=== PATIENT | female | born 1995 | race American Indian/Alaskan Native ===

== ENCOUNTER 2018-12-09 20:48 | Emergency (ER) | payer SELFPAY ==
[2018-12-09] MEDS ORDERED: MORPHINE IV ONE (21:24)
[2018-12-09] MEDS ORDERED: ZOFRAN IV ONE (21:24)
[2018-12-09] MEDS ORDERED: BOOSTRIX IM ONE (21:33)
[2018-12-09] MEDS ORDERED: PERCOCET 5/325 PO PRN (21:33)
--- NOTE | 2018-12-09 21:41 | Emergency Department Report ---
ED Upper Extremity Inj HPI - General Chief Complaint: Extremity Injury, Upper Stated Complaint: WRIST INJURY Time Seen by Provider: 12/09/18 21:00 Source: patient, EMS Mode of arrival: Stretcher Limitations: Physical Limitation - History of Present Illness Initial Comments: Mady is a 23-year-old left-hand dominant healthy female who injured her left w rist after falling onto outstretched hand. This occurred while riding a skateboard. No other injury. She is concerned about the constant bleeding. 10 out of 10 pain in spite 75 g of fentanyl. Unknown tetanus status. Last by mouth intake 5 PM 4 hours prior to arrival. She arrived via EMS. MD Complaint: Injury to:: left, wrist -: This evening Other Extremity Injury: Wrist: Left Other Injuries: none Handedness: left Place: outdoors Severity scale (0 -10): 10 Improves With: immobilization, medication Worsens With: movement of extremity Context: fall Associated Symptoms: denies other symptoms Treatments Prior to Arrival: other (sling) - Related Data Home Medications Medication Instructions Recorded Confirmed Last Taken Albuterol Sulfate [Albuterol 0.63% 0.63 mg IH TID PRN 12/09/18 12/09/18 Unknown NEBS] Previous Rx's Medication Instructions Recorded Last Taken Type HYDROcodone/APAP 5-325 [[place] 1 each PO Q6HR PRN #15 tablet 12/09/18 Unknown Rx 5/325] cephALEXin [Keflex] 500 mg PO Q8HR 7 Days #21 cap 12/09/18 Unknown Rx Allergies Allergy/AdvReac Type Severity Reaction Status Date / Time No Known Allergies Allergy Unverified 12/09/18 20:56 ED Review of Systems ROS: Stated complaint: WRIST INJURY Other details as noted in HPI Constitutional: denies: fever, malaise Musculoskeletal: joint swelling, arthralgia Skin: rash, lesions ED Past Medical Hx - Past Medical History Previous Medical History?: Yes Hx Asthma: Yes - Surgical History Past Surgical History?: Yes Additional Surgical History: left foot surgery - Social History Smoking Status: Never Smoker Substance Use Type: None - Medications Home Medications: Home Medications Medication Instructions Recorded Confirmed Last Taken Type Albuterol Sulfate [Albuterol 0.63% 0.63 mg IH TID PRN 12/09/18 12/09/18 Unknown History NEBS] HYDROcodone/APAP 5-325 [[place] 1 each PO Q6HR PRN #15 tablet 12/09/18 Unknown Rx 5/325] cephALEXin [Keflex] 500 mg PO Q8HR 7 Days #21 cap 12/09/18 Unknown Rx ED Physical Exam - General Limitations: Physical Limitation General appearance: alert, in no apparent distress, other (tearful in pain) - Head Head exam: Present: atraumatic, normocephalic - Eye Eye exam: Present: normal appearance - ENT ENT exam: Present: mucous membranes moist - Neck Neck exam: Present: normal inspection - Respiratory Respiratory exam: Absent: respiratory distress - Cardiovascular Cardiovascular Exam: Absent: systolic murmur, diastolic murmur, rubs, gallop - Extremities Exam Extremities exam: Present: other (left wrist deformity: L shaped deformity with deep puncture wound 8 mm in diameter MUR distally intact) - Back Exam Back exam: Present: normal inspection - Neurological Exam Neurological exam: Present: alert, oriented X3 - Psychiatric Psychiatric exam: Present: normal affect, normal mood - Skin Skin exam: Present: other (bleeding ulcer oozing at left wrist) ED Course Vital Signs 12/09/18 12/09/18 20:52 21:31 Temperature 98.7 F Pulse Rate 60 65 Respiratory 12 14 Rate Blood Pressure 121/85 O2 Sat by Pulse 97 99 Oximetry - Orthopedic Fracture Reduction Fracture #1 Consent Obtained: verbal consent Time Out Performed: Yes Side: left Fracture Reduction Location: radius, ulna Analgesia: hematoma block Technique: direct manipulation, traction/counter-traction Post Reduction X-rays Demonstrate: acceptable reduction Post-Reduction Neuro Exam: intact, no change Post-Reduction Vascular Exam: intact, no change Splint Applied: Yes Patient Tolerated Procedure: well Additional Comments: Suboptimal reduction due to lack of patient cooperation. Left sugar tong splint was applied to the affected extremity under my supervision. After application the extremity was neurovascularly intact with acceptable alignment. ED Medical Decision Making - Radiology Data Radiology results: report reviewed, image reviewed Both bone distal forearm fracture with volar angulation and dorsal displacement - Medical Decision Making Open both bone forearm fracture, Dr. Saravia recommended IV antibiotics and reduction. He explained that this injury is typically treated as a closed fracture with low risk of infection. With hematoma block, fracture reduction suboptimal due to lack of patient's cooperation. She will be referred to orthopedic surgeon for definitive care. Sugar tong splint in place. Sling provided. The open abrasions and ulcer were covered with Vaseline gauze Discharge prescription for norco and keflex Critical care attestation.: If time is entered above; I have spent that time in minutes in the direct care of this critically ill patient, excluding procedure time. ED Disposition Clinical Impression: Open forearm fracture, Radius and ulna distal fracture Disposition: TO HOME OR SELFCARE Is pt being admited?: No Does the pt Need Aspirin: No Condition: Stable Instructions: Wrist Fracture in Adults (ED), Arm Fracture in Adults (ED), Splint Care (ED) Additional Instructions: Please call orthopedic surgeon this week for definitive care. Prescriptions: cephALEXin [Keflex] 500 mg PO Q8HR 7 Days #21 cap HYDROcodone/APAP 5-325 [[place] 5/325] 1 each PO Q6HR PRN #15 tablet PRN Reason: Pain Referrals: ASTON SARAVIA MD [Staff Physician] - 3-5 Days Forms: Work/School Release Form(ED)
[2018-12-09] MEDS ORDERED: ROCEPHIN IM ONE (21:52)
[2018-12-09] MEDS ORDERED: NACL 0.9% 1000 ML 1,000 ML ONE ×2 (21:53)
--- NOTE | 2018-12-09 21:58 | XRay Report ---
LEFT FOREARM 2 VIEWS INDICATION / CLINICAL INFORMATION: fall, deformity noted to left wrist. COMPARISON: None available. FINDINGS: Comminuted and very significantly displaced fractures involve the distal metaphyses of the radius and ulna. Radiocarpal joints appear intact. Signer Name: Rao Vaughn MD Signed: 12/09/2018 9:54 PM Workstation Name: [id number]
[2018-12-09] MEDS ORDERED: ANCEF ONE (21:59)
[2018-12-09] MEDS ORDERED: ceFAZolin 2 GM in NACL 0.9% 100 ML IV ONE (22:00)
[2018-12-09] MEDS ORDERED: XYLOCAINE 1% 20 mL ONE (22:09)
[2018-12-09] MEDS ORDERED: NACL 0.9% 1000 ML 1,000 ML IV ONE (22:14)
[2018-12-09 23:18] VITALS: BP 117/81
--- NOTE | 2018-12-09 23:29 | XRay Report ---
LEFT WRIST, 4 POSTERIOR REDUCTION VIEWS 12/09/2018 INDICATION / CLINICAL INFORMATION: post reduction. COMPARISON: 12/09/2018 FINDINGS: Images are viewed through fiberglass. Comminuted distal radial and distal ulnar fractures. There is persistent dorsal angulation of distal fragments. Signer Name: Anatoliy Kennedy MD Signed: 12/09/2018 11:25 PM Workstation Name: [id number]
[2018-12-10] MEDS ORDERED: XYLOCAINE 1% 20 mL INFILTRATI ONE (06:28)
== END 2018-12-09 23:29 | disposition home or self-care (01) ==
LOC: ED 20:48
DX: S52.502A Unspecified fracture of the lower end of left radius, initial encounter for closed fracture (principal); J45.909 Unspecified asthma, uncomplicated; Z91.013 Allergy to seafood; W05.0XXA Fall from non-moving wheelchair, initial encounter; Y93.89 Activity, other specified; Y92.89 Other specified places as the place of occurrence of the external cause; Y99.8 Other external cause status
CPT/HCPCS: 29125; 73090; 73110; 90471; 90715; 96374; 96375; 99284; J0690; J2270; J2405; J7030; J0696

== ENCOUNTER 2018-12-10 23:55 | Emergency (ER) | payer SELFPAY ==
[2018-12-11] MEDS ORDERED: NORCO 5/325 PO ONE (03:05)
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
[2018-12-11 06:23] VITALS: BP 115/82
== END 2018-12-11 06:10 | disposition home or self-care (01) ==
LOC: ED 23:55
DX: S52.592A Other fractures of lower end of left radius, initial encounter for closed fracture (principal); S52.692A Other fracture of lower end of left ulna, initial encounter for closed fracture; J45.909 Unspecified asthma, uncomplicated; Z98.890 Other specified postprocedural states; Z79.899 Other long term (current) drug therapy; X58.XXXA Exposure to other specified factors, initial encounter; Y93.89 Activity, other specified; Y92.89 Other specified places as the place of occurrence of the external cause; Y99.8 Other external cause status

== ENCOUNTER 2019-09-12 18:48 | Observation (INO) | payer SELFPAY ==
[2019-09-12 19:32] LABS: Basophils % (Auto) 0.2 % (0.0-1.8); Eosinophils # (Auto) 0.2 K/mm3 (0.0-0.4); Eosinophils % (Auto) 2.6 % (0.0-4.3); Hematocrit 31.2 % (30.3-42.9); Hemoglobin 10.9 gm/dl (10.1-14.3); Lymphocytes # (Auto) 1.7 K/mm3 (1.2-5.4); Lymphocytes % (Auto) 17.7 % (13.4-35.0); Mean Corpuscular HGB Conc 35 % (30-34); Mean Corpuscular Volume 89 fl (79-97); Monocytes % (Auto) 10.7 % (0.0-7.3); Platelet Count 227 K/mm3 (140-440); Red Blood Count 3.51 M/mm3 (3.65-5.03); Red Cell Distribution Width 12.7 % (13.2-15.2)
[2019-09-12 19:52] LABS: BUN/Creatinine Ratio 6; Blood Urea Nitrogen 3 mg/dL (7-17); Calcium 9.1 mg/dL (8.4-10.2); Hemolysis Index 3
[2019-09-12 20:01] LABS: Bilirubin,Urine NEG (Negative); Blood,Urine NEG (Negative); Color,Urine Straw (Yellow); Mucus,Urine FEW /HPF; Protein,Urine <15 mg/dL mg/dL (Negative); Urobilinogen,Urine < 2.0 mg/dL (<2.0)
--- NOTE | 2019-09-12 20:18 | Emergency Department Report ---
ED Female HPI - General Chief complaint: Urogenital-Female Stated complaint: SHARP PAIN IN STOMACH/PREG Time Seen by Provider: 09/12/19 20:06 Source: patient Mode of arrival: Ambulatory Limitations: No Limitations - Related Data Home Medications Medication Instructions Recorded Confirmed Last Taken Albuterol Sulfate [Albuterol 0.63% 0.63 mg IH TID PRN 12/09/18 12/09/18 Unknown NEBS] Previous Rx's Medication Instructions Recorded Last Taken Type HYDROcodone/APAP 5-325 [[place] 1 each PO Q6HR PRN #15 tablet 12/09/18 Unknown Rx 5/325] cephALEXin [Keflex] 500 mg PO Q8HR 7 Days #21 cap 12/09/18 Unknown Rx Allergies Allergy/AdvReac Type Severity Reaction Status Date / Time seafood Allergy Unknown Uncoded 12/11/18 00:04 ED Review of Systems ROS: Stated complaint: SHARP PAIN IN STOMACH/PREG Other details as noted in HPI ED Past Medical Hx - Past Medical History Previous Medical History?: Yes Hx Asthma: Yes - Surgical History Past Surgical History?: Yes Additional Surgical History: left foot surgery - Social History Smoking Status: Never Smoker Substance Use Type: None - Medications Home Medications: Home Medications Medication Instructions Recorded Confirmed Last Taken Type Albuterol Sulfate [Albuterol 0.63% 0.63 mg IH TID PRN 12/09/18 12/09/18 Unknown History NEBS] HYDROcodone/APAP 5-325 [[place] 1 each PO Q6HR PRN #15 tablet 12/09/18 Unknown Rx 5/325] cephALEXin [Keflex] 500 mg PO Q8HR 7 Days #21 cap 12/09/18 Unknown Rx ED Physical Exam - General Limitations: No Limitations ED Course Vital Signs 09/12/19 18:51 Temperature 97.5 F L Pulse Rate 131 H Respiratory 20 Rate Blood Pressure 133/77 O2 Sat by Pulse 98 Oximetry ED Medical Decision Making - Lab Data Result diagrams: 09/12/19 19:16 09/12/19 19:16 Critical care attestation.: If time is entered above; I have spent that time in minutes in the direct care of this critically ill patient, excluding procedure time. ED Disposition Condition: Stable Referrals: UNIQUE ROPER MD [Primary Care Provider] - 3-5 Days
--- NOTE | 2019-09-12 22:14 | Ultrasound Report ---
TRANSABDOMINAL OB PELVIC ULTRASOUND INDICATION / CLINICAL INFORMATION: Abdominal pain. COMPARISON: None available. FINDINGS: There is a single intrauterine with an estimated sonographic gestational age of 34 weeks 4 days and an CESAR of 10/20/19. Clinical dates are 32 weeks 5 days. The heart rate is 145 bpm. Fet al presentation is cephalic. Amniotic fluid volume is normal with an VEGA of 14.0 cm. The placenta is located anteriorly, is grade 0 and is free of the os. The uterine cervix measures 4.5 cm in length an d the internal os is closed. Neither ovary is seen. The intracranial and spinal anatomy are normal. A 4 chambered heart view is seen. The sto mach, kidneys, urinary bladder and diaphragm are normal. There is a three-vessel umbilical cord which inserts normally on the abdomen. No anomalies are seen. The estimated weight is 23 10 +/- 342 g. The cephalic index is 94.6 which is above the normal range. IMPRESSION: 1. Single viable 34 week 4 day intrauterine . 2. Elevated cephalic index. Signer Name: Denzel Hardy MD Signed: 09/12/2019 10:10 PM Workstation Name: [id number]
[2019-09-12] MEDS ORDERED: LACTATED RINGERS 1,000 ML IV ONE (23:02)
[2019-09-13] MEDS ORDERED: TERBUTALINE 1 MG/1 ML INJ IVP ONE ×2 (01:07→02:38)
[2019-09-13] MEDS ORDERED: LACTATED RINGERS 1,000 ML IV ONE (01:07)
[2019-09-13] MEDS ORDERED: BETAMET ACET/BETAMET NA PH 6 MG/ML INJ 5 ML MDV IM SCH (03:35)
[2019-09-13] MEDS ORDERED: LACTATED RINGERS 1,000 ML IV SCH (04:00)
[2019-09-13 10:47] LABS: Hepatitis C Virus Antibody Non-Reactive (NonReactive)
--- NOTE | 2019-09-13 12:13 | Short Stay Summary ---
Short Stay Documentation Date of service: 09/13/19 Narrative H&P: 24-year-old G1, P0 at 34+4 weeks who presents to the emergency department with a complaint of pelvic pressure. The patient was unaware that she was and had a pelvic ultrasound that demonstrated an intrauterine with an EDC of October 19. The patient was seen in labor and delivery triage with regular uterine contractions. She denied leakage of fluid or vaginal bleeding. The patient has not had care during this . - History Principal diagnosis: contractions Past Medical History: other (Asthma) Past Surgical History: No surgical history Social history: single - Allergies and Medications Current Medications: Allergies seafood Allergy (Uncoded 12/11/18 00:04) Unknown Home Medications Medication Instructions Recorded Confirmed Last Taken Type Albuterol Sulfate [Albuterol 0.63% 0.63 mg IH TID PRN 12/09/18 09/13/19 Unknown History NEBS] HYDROcodone/APAP 5-325 [[place] 1 each PO Q6HR PRN #15 tablet 12/09/18 09/13/19 Unknown Rx 5/325] cephALEXin [Keflex] 500 mg PO Q8HR 7 Days #21 cap 12/09/18 09/13/19 Unknown Rx Active Medications Betamethasone Acet/Betameth SodPhos ([place] Soluspan) 12 mg IM Q24H ADEN Stop: 09/14/19 03:36 Last Admin: 09/13/19 04:31 Dose: 12 mg Documented by: Lactated Ringer's (Lactated Ringers) 1,000 mls @ 125 mls/hr IV DIRECT ADEN Last Admin: 09/13/19 04:31 Dose: 125 mls/hr Documented by: - Physical exam General appearance: no acute distress Integumentary: no rash HEENT: Atraumatic Lungs: Clear to auscultation Breasts: deferred Heart: Regular rate Gastrointestinal: normal - Hospital course Hospital course: The patient was admitted to labor and delivery for observation and IV fluids. She received IM betamethasone for lung maturity. A fibronectin was performed that was positive. After prolonged observation the patient cervix remained closed and her contractions subsided. The patient was discharged home to return the next morning for her second betamethasone injection into schedule care. The patient has elected to give the up for adoption. - Disposition Condition at discharge: Good Disposition: DC-01 TO HOME OR SELFCARE Short Stay Discharge Plan Activity: other (Pelvic rest for the duration of the ) Diet: regular Additional Instructions: Patient will be escorted by nursing staff to labor and delivery. Patient and baby will be evaluated at labor and delivery. Patient needs to establish care ANGELES. The patient can schedule care at [facility] telephone #[phone] The patient was given labor precautions
[2019-09-13 13:13] VITALS: BP 120/65
== END 2019-09-13 15:58 | disposition home or self-care (01) ==
LOC: TRG 18:48 → ED 18:48 → EDSTATUS 21:41 → APU 21:45 → TRG 09-13 03:08 → LD 09-13 11:54
PROVIDERS: ADMIT Obstetrics & Gynecology; ATTEND Obstetrics & Gynecology
DX: O60.03 Preterm labor without delivery, third trimester (principal); O99.513 Diseases of the respiratory system complicating pregnancy, third trimester; J45.909 Unspecified asthma, uncomplicated; Z3A.34 34 weeks gestation of pregnancy
CPT/HCPCS: 36415; 76805; 80048; 81001; 82731; 84702; 85025; 86592; 86706; 86762; 86803; 86900; 86901; 87806; 96372; 96374; 96376; 99284; G0378; J0702; J3105; J7120

== ENCOUNTER 2019-09-14 08:21 | Outpatient (CLI) | payer SELFPAY ==
[2019-09-14] MEDS ORDERED: BETAMET ACET/BETAMET NA PH 6 MG/ML INJ 5 ML MDV IM NR (08:32)
[2019-09-14] MEDS ORDERED: BETAMET ACET/BETAMET NA PH 6 MG/ML INJ 5 ML MDV IM ONE (08:36)
== END 2019-09-14 08:49 | disposition home or self-care (01) ==
LOC: APU 08:21 → TRG 08:21
PROVIDERS: ATTEND Obstetrics & Gynecology
DX: O47.03 False labor before 37 completed weeks of gestation, third trimester (principal); Z3A.34 34 weeks gestation of pregnancy
CPT/HCPCS: 96372; J0702

== ENCOUNTER 2019-10-22 10:35 | Inpatient (IN) | payer MEDICAID, OTHER ==
[2019-10-22 11:39] LABS: Bilirubin,Urine NEG (Negative); Blood,Urine NEG (Negative); Color,Urine Yellow (Yellow); Mucus,Urine FEW /HPF; Protein,Urine <15 mg/dL mg/dL (Negative); Urobilinogen,Urine < 2.0 mg/dL (<2.0)
[2019-10-22] MEDS: LACTATED RINGERS 1,000 ML IV SCH ×2 (12:25→16:33)
[2019-10-22 13:54] LABS: Hemoglobin 11.3 gm/dl (10.1-14.3); Mean Corpuscular HGB Conc 32 % (30-34); Mean Corpuscular Volume 84 fl (79-97); Platelet Count 243 K/mm3 (140-440); Red Blood Count 4.15 M/mm3 (3.65-5.03); Red Cell Distribution Width 13.2 % (13.2-15.2)
--- NOTE | 2019-10-22 15:28 | Ultrasound Report ---
OBSTETRIC ULTRASOUND INDICATION: Follow-up gestational age COMPARISON: Ultrasound 09/12/2019 TECHNIQUE: Transabdominal imaging was performed. FINDINGS: Single viable intrauterine is identified. lie: Cephalic. Heart rate: 143 bpm. measurements are as follows: Biparietal diameter 9.3 cm, 37 weeks 5 days Head circumference 32.8 cm, 37 weeks 1 day Abdominal circumference 32.5 cm, 36 weeks 3 days Femur length 7.8 cm, 39 weeks 6 days Estimated weight is 3237 g Amniotic fluid index is 7.8cm, within normal limits. No placental abnormalities are seen. CONCLUSION: Estimated weight at this time is 3237 g. Sonographic gestational age is 37 weeks, 6 days. Abdom inal fluid index is 7.8 cm, within normal limits. However, this is decreased since the prior exam (pr eviously 14 cm). Signer Name: Jose Miles MD Signed: 10/22/2019 3:24 PM Workstation Name: [id number]
[2019-10-22] MEDS ORDERED: miSOPROStol 25 MCG TAB VG ONE (15:50)
[2019-10-22] MEDS ORDERED: TERBUTALINE 1 MG/1 ML INJ SUB-Q PRN (15:50)
[2019-10-22] MEDS ORDERED: TERBUTALINE 1 MG/1 ML INJ IVP PRN (15:50)
[2019-10-22] MEDS ORDERED: LIDOCAINE (2%) 20 MG/1 ML VIAL 20 ML MDV INFILTRATI ONE (15:50)
[2019-10-22] MEDS ORDERED: AMPICILLIN/NS 2 GM/100 ML 2 GM/100 ML BAG IV ONE (15:50)
[2019-10-22] MEDS ORDERED: fentaNYL 100 MCG/2 ML INJ IV PRN (15:50)
[2019-10-22] MEDS ORDERED: PROMETHAZINE 25 MG TAB PO PRN ×2 (15:50→21:45)
[2019-10-22] MEDS ORDERED: ONDANSETRON 4 MG/2 ML INJ IV PRN ×2 (15:50→21:45)
[2019-10-22] MEDS ORDERED: MINERAL OIL 30 ML ORAL LIQD PO PRN (15:50)
[2019-10-22] MEDS ORDERED: ePHEDrine SULFATE 50 MG/1 ML INJ IV PRN (15:50)
[2019-10-22] MEDS ORDERED: BUTORPHANOL 2 MG/1 ML INJ IV PRN (15:50)
[2019-10-22] MEDS ORDERED: OXYTOCIN DRIP 30 UNITS/500 ML BAG IV SCH ×2 (16:00)
[2019-10-22] MEDS ORDERED: LACTATED RINGERS 1,000 ML IV SCH (16:00)
--- NOTE | 2019-10-22 16:14 | History and Physical Report ---
History of Present Illness Date of examination: 10/22/19 Date of admission: 10/22/2019 Chief complaint: I'm in pain History of present illness: Pt is a 24 year old female who presents with first baby Past History - Obstetrical History : 1 Medications and Allergies Allergies Allergy/AdvReac Type Severity Reaction Status Date / Time seafood Allergy Mild Unknown Uncoded 10/22/19 11:01 Home Medications Medication Instructions Recorded Confirmed Last Taken Type Albuterol Sulfate [Albuterol 0.63% 0.63 mg IH TID PRN 12/09/18 10/22/19 Unknown History NEBS] HYDROcodone/APAP 5-325 [[place] 1 each PO Q6HR PRN #15 tablet 12/09/18 10/22/19 Unknown Rx 5/325] cephALEXin [Keflex] 500 mg PO Q8HR 7 Days #21 cap 12/09/18 10/22/19 Unknown Rx Active Meds: Active Medications Butorphanol Tartrate (Stadol) 1 mg IV Q2H PRN PRN Reason: Pain, Moderate(4-6) LABOR PAIN Ephedrine Sulfate (Ephedrine Sulfate) 10 mg IV Q2M PRN PRN Reason: Hypotension Fentanyl (Sublimaze) 100 mcg IV Q2H PRN PRN Reason: Pain,Severe (7-10) LABOR PAIN Lactated Ringer's (Lactated Ringers) 1,000 mls @ 125 mls/hr IV DIRECT ADEN Last Admin: 10/22/19 12:25 Dose: 125 mls/hr Documented by: Oxytocin/Sodium Chloride (Pitocin/Ns 20 Unit/1000ml Drip) 20 units in 1,000 mls @ 125 mls/hr IV DIRECT ADEN Oxytocin/Sodium Chloride (Pitocin/Ns 30 Unit/500ml) 30 units in 500 mls @ 1 mls/hr IV TITR ADEN; Protocol Oxytocin/Sodium Chloride (Pitocin/Ns 30 Unit/500ml) 30 units in 500 mls @ 0 mls/hr IV TITR ADEN; Protocol Lactated Ringer's (Lactated Ringers) 1,000 mls @ 125 mls/hr IV DIRECT ADEN Ampicillin Sodium (Ampicillin/Ns 2 Gm/100 Ml) 2 gm in 100 mls @ 100 mls/hr IV ONCE ONE; Protocol Stop: 10/22/19 16:49 Mineral Oil (Mineral Oil) 30 ml PO QHS PRN PRN Reason: Constipation Ondansetron HCl (Zofran) 4 mg IV Q8H PRN PRN Reason: Nausea And Vomiting Promethazine HCl (Phenergan) 25 mg PO Q6H PRN PRN Reason: Nausea And Vomiting Terbutaline Sulfate (Brethine) 0.25 mg SUB-Q ONCE PRN PRN Reason: Hyperstimulation/Hypertonicity Terbutaline Sulfate (Brethine) 0.25 mg IVP ONCE PRN PRN Reason: Hyperstimulation/Hypertonicity - Vital Signs Vital signs: Vital Signs Pulse Ox 60 L 09/14/19 08:36 Temp Pulse Resp BP Pulse Ox 97.9 F 113 H 18 121/77 98 10/22/19 15:12 10/22/19 16:10 10/22/19 15:12 10/22/19 15:12 10/22/19 16:10 - Physical Exam Breasts: Positive: deferred Cardiovascular: Regular rate, Normal S1, Normal S2 Lungs: Positive: Clear to auscultation, Normal air movement Abdomen: Positive: normal appearance, soft, normal bowel sounds Genitourinary (Female): Positive: normal external genitalia, normal perenium Vulva: both: normal Vagina: Positive: normal moisture Uterus: Positive: normal size, normal contour Anus/Rectum: Positive: normal perianal skin Extremities: Positive: normal - Obstetrical FHR: auscultation normal Cervical Dilatation: 5 Cervical Effacement Percentage: 100 station: -2 Uterine Contraction Pattern: Regular Uterine Tone Measurement Phase: Contraction Uterine Contraction Intensity: Moderate Results Result Diagrams: 10/22/19 12:40 Abnormal lab results 10/22/19 Range/Units 12:40 WBC 13.5 H (4.5-11.0) K/mm3 MCH 27 L (28-32) pg All other labs normal. Assessment and Plan IUP at approximately 40 weeks with no care and in active labor. Admit to L&D. Will draw labs. AROM. Anticipate .
[2019-10-22] MEDS ORDERED: METHYLERGONOVINE MALEATE 0.2 MG/ML VIAL IM ONE ×2 (19:00→19:06)
[2019-10-22] MEDS: OXYTOCIN 20 UNIT/1000ML DRIP 20 UNITS/1,000 ML BAG IV SCH ×2 (19:04→20:49)
--- NOTE | 2019-10-22 19:14 | Procedure Note ---
OB Delivery Note - Delivery Date of Delivery: 10/22/19 Surgeon: LUIS SOW Estimated blood loss: 300cc - Vaginal Delivery presentation: vertex Delivery position: OA Delivery augmentation: rupture of membranes, pitocin Delivery monitor: external FHT, external uterine Route of delivery: vacuum extraction Delivery placenta: spontaneous Delivery cord: 3 umbilical vessels Episiotomy: none Delivery laceration: 2nd degree Delivery repair: vicryl Anesthesia: local - Infant A at 1 minute: 8 at 5 minutes: 9 Gender: Male (7 pounds 7 ounces)
[2019-10-22] MEDS ORDERED: PROMETHAZINE 25 MG RECT SUPP PR PRN (21:45)
[2019-10-22] MEDS ORDERED: HYDROcodone/ACETAMINOPHEN 5-325 MG TAB PO PRN (21:45)
[2019-10-22] MEDS ORDERED: MAGNESIUM HYDROXIDE (MOM) ORAL LIQD UDC PO PRN (21:45)
[2019-10-22] MEDS ORDERED: diphenhydrAMINE 25 MG CAP PO PRN (21:45)
[2019-10-22] MEDS ORDERED: ACETAMINOPHEN 325 MG TAB PO PRN (21:45)
[2019-10-22] MEDS ORDERED: LANOLIN/ZINC/DIMETHICONE (LANSINOH) 7 GM TP PRN (21:45)
[2019-10-22] MEDS ORDERED: WITCH HAZEL/ GLYCERIN PAD TP PRN (21:45)
[2019-10-23] MEDS: DOCUSATE SODIUM 100 MG CAP PO SCH ×3 (00:03→21:59)
[2019-10-23] MEDS: IBUPROFEN 600 MG TAB PO SCH ×3 (00:04→21:59)
[2019-10-23 07:49] LABS: Hematocrit 28.2 % (30.3-42.9); Hemoglobin 9.4 gm/dl (10.1-14.3)
[2019-10-23] MEDS: PRENATAL VIT27-FE FUMARATE-FOLIC ACID VIT TAB PO SCH (13:35)
[2019-10-23] MEDS ORDERED: MEASLES, MUMPS & RUBELLA 12,500 UNIT/0.5 ML VACCINE SUB-Q ONE (19:10)
[2019-10-24] MEDS: IBUPROFEN 600 MG TAB PO SCH ×2 (05:25→12:47)
[2019-10-24] MEDS ORDERED: ALBUTEROL 2.5 MG/3 ML NEBU IH ONE (09:27)
[2019-10-24] MEDS: PRENATAL VIT27-FE FUMARATE-FOLIC ACID VIT TAB PO SCH (11:14)
[2019-10-24] MEDS: DOCUSATE SODIUM 100 MG CAP PO SCH (11:14)
[2019-10-24] MEDS ORDERED: ALBUTEROL 2.5 MG/3 ML NEBU IH SCH (12:00)
--- NOTE | 2019-10-24 14:19 | Progress Note ---
Assessment and Plan PPD 1 s/p . Doing well. Plan for discharge on tomorrow. Subjective - Subjective Date of service: 10/24/19 Interval history: Pt is a 24 year old female who is PPD 1 s/p . Doing well. Pt has to stay for 48 hours due to unknown GBS status. Patient reports: appetite normal, voiding normally, pain well controlled, ambulating normally [place]: doing well Objective - Vital Signs Latest vital signs: Vital Signs Temp Pulse Pulse Resp Resp BP Pulse Ox 10/24/19 09:32 82 16 10/24/19 07:43 97.6 F 12 104/64 10/24/19 00:21 98.0 F 100 H 18 98/63 98 10/23/19 17:22 98.2 F 102 H 18 105/62 99 Intake and Output 10/23/19 10/24/19 10/24/19 22:59 06:59 14:59 Intake Total 6881 687 3661 Balance 6997 971 3019 Intake: Oral 282 267 1193 Intake, Free Water 840 Other: Total, Intake Amount 480 240 800 Voiding Method Toilet # Voids Void 1 1 - Exam Breasts: Present: deferred Cardiovascular: Present: Regular rate, Normal S1, Normal S2 Lungs: Present: Clear to auscultation, Normal air movement Abdomen: Present: normal appearance, soft Vulva: both: normal Extremities: Present: normal
--- NOTE | 2019-10-24 14:23 | Discharge Summary ---
Providers - Providers Date of Admission: 10/22/19 11:01 Date of discharge: 10/24/19 Attending physician: LUIS SOW 10/22/19 19:47 Consult to Case Management [CONS] Routine Services Needed at Discharge: Email Marketing Manager Notified:: AMELIA MALONE Phone number called:: [phone] Additional Physician Instructions: PT CHOOSING TO PUT BABY UP FOR ADOPTION. PT THINKS SHE CAN "LEAVE BABY IN HOSPITAL" IF WHAT SHE HAS SET UP WITH FAMILY FRIEND DOESENT WORK OUT. NO PRENTATAL CARE G 1 P1 Primary care physician: LUIS SOW Hospitalization Reason for admission: active labor Delivery: Laceration: 2nd degree complications: none Discharge diagnosis: IUP at term delivered [place] baby: male Hospital course: unremarkable Condition at discharge: Good Disposition: DC-01 TO HOME OR SELFCARE Plan - Discharge Medications Prescriptions: Ibuprofen [Motrin] 800 mg PO Q8HR PRN #40 tablet PRN Reason: Pain, Mild (1-3) 21/Iron Fu/Folic Acid [ Complete Caplet] 1 each PO DAILY #30 tablet - Provider Discharge Summary Activity: routine, no sex for 6 weeks, no heavy lifting 4 weeks, no strenuous exercise Diet: routine Instructions: routine Additional instructions: [] Smoking cessation referral if applicable(refer to patient education folder for contact #) [] Refer to [facility] Booklet Call your doctor immediately for: * Fever > 100.5 * Heavy vaginal bleeding ( >1 pad per hour) * Severe persistent headache * Shortness of breath * Reddened, hot, painful area to leg or breast * Drainage or odor from incision. * Keep incision clean and dry at all times and follow doctor's instructions regarding bathing/showering - Follow up plan Follow up: LUIS SOW MD [Primary Care Provider] - 6 Weeks
[2019-10-24 18:46] VITALS: BP 109/59
== END 2019-10-24 19:15 | disposition home or self-care (01) | DRG 807 ==
LOC: LD 10:35 → TRG 10:35 → APU 10:35 → TRG 10:37 → APU 10:37 → EDSTATUS 10:39 → LD 11:01 → APU 11:01 → OB 21:28
PROVIDERS: ADMIT Obstetrics & Gynecology; ATTEND Obstetrics & Gynecology
PROC: 10D07Z6 Extraction of Products of Conception, Vacuum, Via Natural or Artificial Opening (ICD-10-PCS; principal; 2019-10-22)
PROC: 0KQM0ZZ Repair Perineum Muscle, Open Approach (ICD-10-PCS; 2019-10-22)
PROC: 10907ZC Drainage of Amniotic Fluid, Therapeutic from Products of Conception, Via Natural or Artificial Opening (ICD-10-PCS; 2019-10-22)
PROC: 3E0234Z Introduction of Serum, Toxoid and Vaccine into Muscle, Percutaneous Approach (ICD-10-PCS; 2019-10-23)
DX: O70.1 Second degree perineal laceration during delivery (principal); Z37.0 Single live birth; Z3A.40 40 weeks gestation of pregnancy; Z23 Encounter for immunization; Z91.013 Allergy to seafood; Z79.899 Other long term (current) drug therapy
CPT/HCPCS: 36415; 76816; 81001; 85014; 85018; 85027; 86695; 86762; 86850; 86900; 86901; 87529; 88307; 94640; G0378; J0290; J2210; J2590; J7120

== ENCOUNTER 2021-12-11 15:06 | Emergency (ER) | payer OTHER ==
[2021-12-11 19:34] VITALS: BP 137/84
[2021-12-11] MEDS ORDERED: IBUPROFEN 600 MG TAB PO ONE (19:38)
[2021-12-11] MEDS ORDERED: ACETAMINOPHEN 500 MG TAB PO ONE (19:39)
--- NOTE | 2021-12-11 19:51 | Emergency Department Report ---
ED ENT HPI - General Chief complaint: Earache Stated complaint: EAR INFECTION Source: patient Mode of arrival: Ambulatory Limitations: No Limitations - History of Present Illness Initial comments: 26-year-old female presents to the ED complaining left earache x2 days, fever and chills. Patient states that she has been putting peroxide in her left ear x1 day. Patient denies any headache nausea vomiting at present time. She denies any blurred vision at present time. Patient is alert and oriented x3. No acute distress noted. No ill appearance noted. MD complaint: ear pain Onset/Timin -: Gradual Severity: mild Severity scale (0 -10): 2 Quality: aching Consistency: intermittent Improves with: none - Related Data Home Medications Medication Instructions Recorded Confirmed Last Taken Albuterol Sulfate [Albuterol 0.63% 0.63 mg IH TID PRN 12/09/18 06/13/21 Unknown NEBS] Previous Rx's Medication Instructions Recorded Last Taken Type 21/Iron Fu/Folic Acid 1 each PO DAILY #30 tablet 10/23/19 Unknown Rx [ Complete Caplet] Ibuprofen [Motrin 600 MG tab] 600 mg PO Q6H PRN #30 tablet 06/14/21 Unknown Rx Amoxicillin/K Clav Tab [Augmentin 1 tab PO Q12HR 10 Days #20 tab 12/11/21 Unknown Rx 875 mg] Ibuprofen [Motrin] 600 mg PO Q8H PRN 15 Days #30 12/11/21 Unknown Rx tablet Allergies Allergy/AdvReac Type Severity Reaction Status Date / Time seafood Allergy Mild Unknown Uncoded 06/13/21 12:10 ED Dental HPI - General Chief complaint: Earache Stated complaint: EAR INFECTION Source: patient Mode of arrival: Ambulatory Limitations: No Limitations - Related Data Home Medications Medication Instructions Recorded Confirmed Last Taken Albuterol Sulfate [Albuterol 0.63% 0.63 mg IH TID PRN 12/09/18 06/13/21 Unknown NEBS] Previous Rx's Medication Instructions Recorded Last Taken Type 21/Iron Fu/Folic Acid 1 each PO DAILY #30 tablet 10/23/19 Unknown Rx [ Complete Caplet] Ibuprofen [Motrin 600 MG tab] 600 mg PO Q6H PRN #30 tablet 06/14/21 Unknown Rx Amoxicillin/K Clav Tab [Augmentin 1 tab PO Q12HR 10 Days #20 tab 12/11/21 Unknown Rx 875 mg] Ibuprofen [Motrin] 600 mg PO Q8H PRN 15 Days #30 12/11/21 Unknown Rx tablet Allergies Allergy/AdvReac Type Severity Reaction Status Date / Time seafood Allergy Mild Unknown Uncoded 06/13/21 12:10 ED Review of Systems ROS: Stated complaint: EAR INFECTION Other details as noted in HPI Constitutional: denies: chills, fever Eyes: denies: eye pain, eye discharge, vision change ENT: ear pain. denies: throat pain Respiratory: denies: cough, shortness of breath, wheezing Cardiovascular: denies: chest pain, palpitations Endocrine: no symptoms reported Gastrointestinal: denies: abdominal pain, nausea, diarrhea Genitourinary: denies: urgency, dysuria, discharge Musculoskeletal: denies: back pain, joint swelling, arthralgia Skin: denies: rash, lesions Neurological: denies: headache, weakness, paresthesias Psychiatric: denies: anxiety, depression Hematological/Lymphatic: denies: easy bleeding, easy bruising ED Past Medical Hx - Past Medical History Previous Medical History?: Yes Hx Hypertension: No Hx Congestive Heart Failure: No Hx Diabetes: No Hx Deep Vein Thrombosis: No Hx Renal Disease: No Hx Sickle Cell Disease: No Hx Seizures: No Hx Asthma: Yes (last attack 2019) Hx COPD: No Hx HIV: No - Surgical History Past Surgical History?: Yes Additional Surgical History: left foot surgery - Social History Smoking Status: Never Smoker Substance Use Type: None - Medications Home Medications: Home Medications Medication Instructions Recorded Confirmed Last Taken Type Albuterol Sulfate [Albuterol 0.63% 0.63 mg IH TID PRN 12/09/18 06/13/21 Unknown History NEBS] 21/Iron Fu/Folic Acid 1 each PO DAILY #30 tablet 10/23/19 06/13/21 Unknown Rx [ Complete Caplet] Ibuprofen [Motrin 600 MG tab] 600 mg PO Q6H PRN #30 tablet 06/14/21 Unknown Rx Amoxicillin/K Clav Tab [Augmentin 1 tab PO Q12HR 10 Days #20 tab 12/11/21 Unknown Rx 875 mg] Ibuprofen [Motrin] 600 mg PO Q8H PRN 15 Days #30 12/11/21 Unknown Rx tablet ED Physical Exam - General Limitations: No Limitations General appearance: alert, in no apparent distress - Head Head exam: Present: atraumatic, normocephalic - Eye Eye exam: Present: normal appearance - ENT ENT exam: Present: mucous membranes moist - Expanded ENT Exam Expanded TM/Canal exam: Cerumen Impaction: Right TM, Left TM - Neck Neck exam: Present: normal inspection - Respiratory Respiratory exam: Present: normal lung sounds bilaterally. Absent: respiratory distress - Cardiovascular Cardiovascular Exam: Present: regular rate, normal rhythm. Absent: systolic murmur, diastolic murmur, rubs, gallop - GI/Abdominal GI/Abdominal exam: Present: soft, normal bowel sounds - Extremities Exam Extremities exam: Present: normal inspection - Back Exam Back exam: Present: normal inspection - Neurological Exam Neurological exam: Present: alert, oriented X3 - Psychiatric Psychiatric exam: Present: normal affect, normal mood - Skin Skin exam: Present: warm, dry, intact, normal color. Absent: rash ED Course Vital Signs 12/11/21 12/11/21 12/11/21 19:33 19:34 20:11 Temperature 102.9 F H 101 F H Pulse Rate 117 H Respiratory 18 18 Rate Blood Pressure 137/84 [Right] O2 Sat by Pulse 99 99 Oximetry 12/11/21 20:36 Temperature 99.3 F Pulse Rate Respiratory Rate Blood Pressure [Right] O2 Sat by Pulse Oximetry ED Medical Decision Making - Medical Decision Making 26-year-old female presents to the ED complaining left earache x2 days, fever and chills. Patient states that she has been putting peroxide in her left ear x1 day. Patient denies any headache nausea vomiting at present time. She denies any blurred vision at present time. Patient is alert and oriented x3. No acute distress noted. No ill appearance noted. Physical examination patient has cerumen impaction noted to bilateral ears. Rechecked the patient is resting quietly quietly and comfortable and feeling better. I discussed the results of diagnostic study, my clinical impression and the plan for further treatment with the patient. Patient agrees with plan and discharge at this present time. All question addressed. I have given the patient instruction regarding a diagnosis ,expectation ,follow- up and return precaution. I explained to the patient that emergent condition may arise and to return to the ED for new worsen and any new persisting condition. I have explained the importance of following up with the primary care physician or referral physician listed below has instructed. The patient verbalized understanding of discharge instruction. Critical care attestation.: If time is entered above; I have spent that time in minutes in the direct care of this critically ill patient, excluding procedure time. ED Disposition Clinical Impression: Cerumen impaction Qualifiers: Laterality: bilateral Qualified Code(s): H61.23 - Impacted cerumen, bilateral Fever Qualifiers: Fever type: unspecified Qualified Code(s): R50.9 - Fever, unspecified Disposition: 01 HOME / SELF CARE / HOMELESS Is pt being admited?: No Does the pt Need Aspirin: No Condition: Stable Instructions: Earwax Buildup, Adult Additional Instructions: [facility] -[phone] Use Debrox over the counter for ear wax Your symptoms appear most consistent with a nonspecific viral syndrome. However, given this current pandemic, COVID-19 is in the differential of possibilities. Despite your previous negative COVID-19 test, I do recommend repeat outpatient Covid 19 testing. In the meantime, isolate/quarantine yourself and stay away from anyone who is elderly, immunocompromised or chronically ill. You can use ibuprofen every 6-8 hours and Tylenol every 4-8 hours, using the dosing on the back of the bottle, as needed for any fever or body aches. Return to the emergency department with any worsening of your symptoms, development of chest pain or shortness of breath, or with any acute distress. Prescriptions: Amoxicillin/K Clav Tab [Augmentin 875 mg] 1 tab PO Q12HR 10 Days #20 tab Ibuprofen [Motrin] 600 mg PO Q8H PRN 15 Days #30 tablet PRN Reason: Pain Referrals: JOAQUIN LIGHT MD [Staff Physician] - 3-5 Days Forms: Work/School Release Form(ED)
== END 2021-12-11 20:59 | disposition home or self-care (01) ==
LOC: ED 15:06
DX: H61.22 Impacted cerumen, left ear (principal); R50.9 Fever, unspecified; J45.909 Unspecified asthma, uncomplicated; Z91.013 Allergy to seafood
CPT/HCPCS: 99283